=== PATIENT | female | born 1935 | race Caucasian/White ===

== ENCOUNTER 2016-11-14 06:05 | Emergency (ER) | payer MEDICARE ==
[2016-11-14 07:00] LABS: ABSOLUTE NEUTROPHIL COUNT 10.5 K/mm3 (1.8-7.7); BASO % 0.2 % (0.2-1.0); EOS # 0.1 (0.0-0.5); EOS % 0.5 % (0.9-2.9); HEMATOCRIT 37.3 % (37.0-47.0); HEMOGLOBIN 12.4 gm/l (12.0-16.0); IMM NEUT # 0.6 K/mm3 (0-0.2); IMM NEUT% 4.3 % (0-1); LYMPH # 2.7 (1.0-4.8); LYMPH % 18.5 % (15-45); MEAN CELL VOLUME 93.7 fl (81.0-99.0); MEAN CORPUSCULAR HEMOGLOBIN 31.2 pg (27.0-31.0); MEAN CORPUSCULAR HGB CONC 33.2 g/dl (33.0-37.0); MEAN PLATELET VOLUME 9.4 fl (7.4-10.4); MONO # 0.9 (0.0-0.8); NEUT % 70.5 % (43-75); PLATELET COUNT 279 K/mm3 (130-400); RED CELL DISTRIBUTION WIDTH 18.9 % (11.5-14.5); URINE BILIRUBIN NEGATIVE (NEGATIVE); URINE BLOOD 3+ (NEGATIVE); URINE GLUCOSE (UA) NEGATIVE (NEGATIVE); URINE LEUKOCYTE ESTERASE 2+ (NEGATIVE); URINE NITRITE NEGATIVE (NEGATIVE); URINE PROTEIN 2+ (NEGATIVE); URINE UROBILINOGEN NORMAL (0-1 mg/dl)
[2016-11-14 07:03] LABS: URINE APPEARANCE HAZY; URINE COLOR YELLOW
[2016-11-14 07:08] LABS: URINE BACTERIA 4+; URINE EPITHELIAL CELLS 0-2 /hpf; URINE RBC 20-30 /hpf; URINE WBC 40-50 /hpf
[2016-11-14 07:14] LABS: ALB/GLOB RATIO 0.9 (>1.0); ALBUMIN 3.6 gm/dL (3.5-5.7); TROPONIN I 0.02 ng/ml (0.0-0.06)
[2016-11-14 07:18] LABS: CKMB ISOENZYME 4.6 ng/ml (0.6-6.3)
[2016-11-14 07:50] LABS: BAND 5 % (0-10); BASOPHIL 0 % (0-1); EOSINOPHIL 0 % (1-3); LYMPHOCYTE 13 % (15-45); MONOCYTE 5 % (4-12); NEUTROPHILS 77 % (43-75); PLATELET ESTIMATE NORMAL (NORMAL); TOTAL CELLS COUNTED 100
[2016-11-14] MEDS ORDERED: CEFTRIAXONE 1 GRAM DUPLEX 50 ML IV ONE (07:56)
--- NOTE | 2016-11-14 08:41 | RAD ---
PORTABLE CHEST RADIOGRAPH HISTORY: Hypoglycemia. Frontal portable chest radiograph dated 11/14/2016. COMPARISON: 09/06/2016. FINDINGS: LUNG VOLUMES: Diminished. FOCAL AIRSPACE OPACITY: Resolution of airspace opacity at the right midlung field. Coarsened bronchovascular markings. PLEURAL EFFUSION: None. CARDIOMEDIASTINAL SILHOUETTE: Dual lumen right internal jugular catheter, tip projecting over superior vena cava. Hiatal hernia. PNEUMOTHORAX: None identified. OSSEOUS STRUCTURES: No grossly destructive lesions. IMPRESSION: 1. Hypoventilatory study with no gross airspace consolidation. 2. Coarsened markings which may indicate atypical/[place] compression, central airways disease, or bronchitis. 3. Dual lumen right internal jugular catheter, no pneumothorax. 4. Moderate hiatal hernia.
[2016-11-14 08:42] LABS: CALCIUM 9.6 mg/dL (8.6-10.3)
== END 2016-11-14 10:46 | disposition home or self-care (01) ==
LOC: ED 06:05
DX: N39.0 Urinary tract infection, site not specified (principal); E11.649 Type 2 diabetes mellitus with hypoglycemia without coma; I10 Essential (primary) hypertension
CPT/HCPCS: 83605; 85025; 82550; 82553; 87040 ×2; 87086; 80053; 87186; 84484; 81001; 87077; 36415; 71010; 96375; 99284 ×2; 96365; 96366; 93005; J0696

== ENCOUNTER 2017-01-09 15:11 | Outpatient (CLI) | payer MEDICARE | END 2017-01-09 15:12 | disposition home or self-care (01) | LOC: NC 15:11 | PROVIDERS: ATTEND Internal Medicine | DX: E11.69 Type 2 diabetes mellitus with other specified complication (principal); Z71.3 Dietary counseling and surveillance; Z68.37 Body mass index [BMI] 37.0-37.9, adult ==

== ENCOUNTER 2017-02-18 04:28 | Emergency (ER) | payer MEDICARE | END 2017-02-18 06:44 | disposition home or self-care (01) | LOC: ED 04:28 | DX: R04.0 Epistaxis (principal); I48.91 Unspecified atrial fibrillation; E03.9 Hypothyroidism, unspecified; I10 Essential (primary) hypertension; E11.9 Type 2 diabetes mellitus without complications; Z79.84 Long term (current) use of oral hypoglycemic drugs; Z79.01 Long term (current) use of anticoagulants ==